=== PATIENT | female | born 1995 | race Native Hawaiian/Other Pacific Islander ===

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

== ENCOUNTER 2019-05-29 08:53 | Emergency (ER) | payer OTHER ==
[~2019-05-29] VITALS: Ht 165.1 cm; Wt 83.5 kg
[~2019-05-29 08:53] MED LIST: [UNRECOGNIZED DRUG - REMARK] PO
[2019-05-29 09:12] VITALS: TEMP 97.5
[2019-05-29 09:46] LABS: PLATELET COUNT 159 K/uL (152-353)
[2019-05-29 09:49] LABS: POTASSIUM 3.8 mmol/L (3.6-5.2)
[2019-05-29 10:03] LABS: PARTIAL THROMBOPLASTIN TIME 30.3 SECONDS (24.5-33.6)
[2019-05-29 10:34] VITALS: BP 110/76
== END 2019-05-29 10:57 | disposition short-term general hospital (02) ==
LOC: ED 08:53
PROVIDERS: Hospitalist
DX: O46.90 Antepartum hemorrhage, unspecified, unspecified trimester (principal)
CPT/HCPCS: 36415; 80048; 85027; 85610; 85730; 96360; 96361; 96365; 96375; 99285; J0696; J2405

== ENCOUNTER 2019-05-29 11:00 | Outpatient (CLI) | payer OTHER | END 2019-05-29 11:14 | disposition short-term general hospital (02) | LOC: AMB 11:00 | DX: O46.90 Antepartum hemorrhage, unspecified, unspecified trimester (principal); O62.9 Abnormality of forces of labor, unspecified; Z3A.00 Weeks of gestation of pregnancy not specified | CPT/HCPCS: A0425; A0429 ==